=== PATIENT | female | born 1980 | race Caucasian/White ===

== ENCOUNTER 2017-07-23 21:20 | Emergency (ER) | payer MEDICAID ==
[2017-07-23 21:55] LABS: URINE BILIRUBIN NEGATIVE (NEGATIVE); URINE BLOOD SMALL (NEGATIVE); URINE GLUCOSE (UA) 100 mg/dL (NEGATIVE); URINE KETONE NEGATIVE (NEGATIVE); URINE PROTEIN TRACE mg/dL (NEGATIVE)
[2017-07-23 21:58] LABS: URINE COLOR ORANGE
[2017-07-23 22:02] LABS: URINE EPITHELIAL CELLS MODERATE /lpf (FEW)
[2017-07-23 22:03] LABS: URINE BACTERIA MODERATE /hpf (NONE SEEN)
--- NOTE | 2017-07-23 22:32 | ED Physician Chart ---
ED Chief Complaint/HPI - Patient Information Date Seen:: 07/23/17 Time Seen:: 21:30 Chief Complaint:: Dysuria History of Present Illness:: onset x one day of dysuria; pt denies polyuria, hematuria, Abd. pain, flank pain , A/N/V/D/C, fever, chills, C/P, SOB, cough, Neck pain, H/As, or vertigo Allergies:: Allergies Allergy/AdvReac Type Severity Reaction Status Date / Time fentanyl Allergy Verified 07/23/17 21:34 morphine Allergy Verified 07/23/17 21:34 Vitals:: Vital Signs - 8 hr 07/23/17 21:30 Temp 98.6 F HR 90 RR 16 BP 131/71 O2 Sat % 95 Historian:: Patient Review:: Nurse's Note Reviewed ED Review of Systems - Review of Systems General/Constitutional: No fever, No chills, No weight loss, No weakness, No diaphoresis, No edema, No loss of appetite Skin: No skin lesions, Rash, No bruising Head: No headache, No light-headedness Eyes: No loss of vision, No pain, No diplopia ENT: No earache, No nasal drainage, No sore throat, No tinnitus Neck: No neck pain, No swelling, No thyromegaly, No stiffness, No mass noted Cardio Vascular: No chest pain, No palpitations, No PND, No orthopnea, No edema Pulmonary: SOB, Cough, No sputum, Wheezing GI: No nausea, No vomiting, No diarrhea, No pain, No melena, No hematochezia, No constipation, No hematemesis G/U: Dysuria, Frequency, No hematuria, No nacturia 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 vaginal discharge, No abnormal vaginal bleed, No contraction Musculoskeletal: Bone or joint pain, No back pain, Muscle pain Endocrine: No polyuria, No polydipsia Psychiatric: No prior psych history, No depression, No anxiety, No suicidal ideation Hematopoietic: No bruising, No lymphadenopathy Allergic/Immuno: No urticaria, No angioedema Neurological: No syncope, No focal symptoms, No weakness, No paresthesia, No headache, No seizure, No dizziness, No confusion, No vertigo ED Past Medical History - Past Medical History Obtainable: Yes Past Medical History: Asthma/COPD, Arthritis, Other (Fibromyalgia; SLE) Family History: HTN Social History: Non Smoker, No Alcohol, No Drug Use, Single Surgical History: Cholecystectomy Psychiatricy History: None Medication: Reviewed Family Medical History - Family Member Father History Unknown: Yes Ethnicity: Non- Living Status: Still Living Hx Family Hypertension: Yes Hx Family Diabetes: Yes ED Physical Exam - Physical Examination General/Constitutional: Awake, Well-developed, well-nourished, Alert, No distress, GCS 15, Non-toxic appearing, Ambulatory Head: Atraumatic Eyes: Lids, conjuctiva normal, PERRL, EOMI Skin: Nl inspection, No rash, No skin lesions, No ecchymosis, Well hydrated, No lymphadenopathy ENMT: External ears, nose nl, Nasal exam nl, Lips, teeth, gums nl Neck: Nontender, Full ROM w/o pain, No JVD, No nuchal rigidity, No bruit, No mass, No stridor Respiratory: Nl effort/Exclusion, Clear to Auscultation, No Wheeze/Rhonchi/Rales Cardio Vascular: RRR, No murmur, gallop, rubs, NL S1 S2 GI: No tenderness/rebounding/guarding, No organomegaly, No hernia, Normal BS's, Nondistended, No mass/bruits, No McBurney tenderness : No CVA tenderness Extremities: No tenderness or effusion, Full ROM, normal strength in all extremities, No edema, Normal digits & nails Neuro/Psych: Alert/oriented, DTR's symmetric, Normal sensory exam, Normal motor strength, Judgement/insight normal, Mood normal, Normal gait, No focal deficits Misc: normal gait, Normal back, No paraspinal tenderness ED Labs/Radiology/EKG Results - Lab Results Results: Laboratory Tests 07/23/17 07/23/17 21:40 21:40 Urine Source [place] Urine Color ORANGE Urine Clarity SLIGHT CLOUDY Urine pH 6.0 Ur Specific House 1.015 Urine Protein TRACE Urine Glucose (UA) 100 H Urine Ketones NEGATIVE Urine Blood SMALL H Urine Nitrate POSITIVE H Urine Bilirubin NEGATIVE Urine Urobilinogen 1.0 Ur Leukocyte Esterase TRACE H Urine RBC 2-5 Urine WBC 10-25 H Ur Epithelial Cells MODERATE Urine Bacteria MODERATE Urine Test NEGATIVE Comments:: U/A: + WBCs; + Bacteria; + Nitrites; + Leukocytes; - UCG ED Septic Shock - . Is Septic Shock (SBP<90, OR Lactate>4 mmol\L) present?: No - <6hrs of presentation: Vital Signs: Vital Signs - 8 hr 07/23/17 21:30 Temp 98.6 F HR 90 RR 16 BP 131/71 O2 Sat % 95 ED Reassessment (Disposition) - Reassessment Reassessment:: pt is asymptomatic upon discharge Reassessment Condition:: Improved - Diagnosis Diagnosis:: Dx: Dysuria; Cystitis; UTI - Aftercare/Follow up Instructions Aftercare/Follow-Up Instructions:: Counseled pt regarding lab results/diagnosis & need follow up, Refer to Discharge Instructions, Counseled pt & family regarding lab results/diagnosis & need follow up Medication Prescribed:: Rx: Macrobid 100mg po bid x 10 days - Patient Disposition Discharge/Transfer:: Home Condition at Disposition:: Stable, Improved (RTER prn if existing s/s reoccur and/or get worse and/or any other new s/s occur; ACIs given for all above Dx; refer to Urologist/Physician Practice Coordinator ADA; F/U with PMD in one day or prn; RTER prn if concerned) ED Discharge Plan - Patient Disposition Instructions: Urinary Tract Infection, [id number] Additional Instructions: take medication as prescribed.
== END 2017-07-23 22:28 | disposition home or self-care (01) ==
LOC: ER 21:20
DX: N39.0 Urinary tract infection, site not specified (principal); N30.90 Cystitis, unspecified without hematuria; J45.909 Unspecified asthma, uncomplicated; J44.9 Chronic obstructive pulmonary disease, unspecified
CPT/HCPCS: 81001-TC; 81025-TC; 87086-90; Z7502